=== PATIENT | female | born 1975 | race Hispanic/Latino ===

== ENCOUNTER 2017-11-08 01:48 | Emergency (ER) | payer OTHER ==
[2017-11-08 02:08] LABS: APPEARANCE,URINE Clear (CLEAR); BILIRUBIN,URINE Negative (NEGATIVE); COLOR,URINE Yellow (YELLOW); GLUCOSE, URINE (UA) Negative (NEGATIVE); KETONES,URINE Negative (NEGATIVE); LEUKOCYTE ESTERASE ,URINE Moderate (NEGATIVE); NITRATE,URINE Negative (NEGATIVE); OCCULT BLOOD,URINE Small (NEGATIVE); PROTEIN,URINE POS 1+ (NEGATIVE); UROBILINOGEN,URINE 0.2 mg/dL (0.2-1.0)
[2017-11-08 02:14] LABS: BACTERIA,URINE None Seen /HPF (None Seen); RBC,URINE 0-1 /HPF (0-1)
[2017-11-08 02:17] LABS: SQUAMOUS EPITHELIAL CELL,UR Few /HPF (0-2)
[2017-11-08] MEDS ORDERED: SULFAMETHOX-TMP DS 800/160 TAB ONE (02:38)
[2017-11-08] MEDS ORDERED: PHENAZOPYRIDINE HCL 200 MG TABLET ONE (02:39)
[2017-11-08] MEDS ORDERED: ONDANSETRON ODT 4 MG TAB ONE (02:39)
== END 2017-11-08 03:08 | disposition home or self-care (01) ==
LOC: EDH 01:48
DX: N39.0 Urinary tract infection, site not specified (principal); R10.9 Unspecified abdominal pain; R11.10 Vomiting, unspecified; I10 Essential (primary) hypertension; Z90.49 Acquired absence of other specified parts of digestive tract; Z98.890 Other specified postprocedural states
CPT/HCPCS: 81001